=== PATIENT | male | born 1980 | race African-American/Black ===

== ENCOUNTER 2016-11-28 07:06 | Emergency (ER) | payer OTHER ==
--- NOTE | ~2016-11-28 | CR90 ---
[facility]. [facility] A Service of [facility] & [facility] RADIOLOGY TEXT RESULTS PATIENT: REY MUNOZ LOCATION: SED : 84 UNIT #: [id number] AGE: [address]: Shay Butler MD SEX: M ORDER DR: [id number] [place] [id number] MR#: [id number] Acc #: [id number] NAME: REY MUNOZ : 1980 SEX: M STUDY DATE/TIME: 11/28/2016 6:03 UNIT: SED ROOM: STUDY DESCRIPTION: CR Elbow 2 View Lt Attending Physician: Shay Butler M.D. Ordering Physician: Shay Butler M.D. Primary Care Physician: No Primary Care Physician MEDICAL IMAGING REPORT This report is preliminary unless electronic signature is present. EXAM Left elbow 2 views 11/28/2016 CLINICAL HISTORY Left elbow laceration from glass. There is concern about a possible foreign body. FINDINGS There is some artifact overlying the wound from bandages. This may limit sensitivity for more subtle foreign bodies. Allowing for that, no convincing evidence of foreign body is seen. On the AP view. There are faint radiodensities projected over the soft tissues though these may be artifact as well and they are not closely associated with the laceration rendering it unlikely that they represent foreign bodies related to the wound. Dictated by... Kristopher Fuentes M.D. THIS IS AN ELECTRONICALLY VERIFIED REPORT Kristopher Fuentes M.D. at 11/28/2016 3:49 PM TEV/aa TD: 11/28/2016 08:11 JOB #: [id number] MEDICAL IMAGING REPORT Page 1 of 1
[~2016-11-28 07:06] MED LIST: AMOXICILLIN; ATARAX PO; BACLOFEN10 MG PO; FLAGYL PO; FLEXERIL; FLEXERIL10 M1 PO; HYDROCODON-ACE1 EAC9; NAPROXEN PO; NO MEDICATIONS; ULTRAM PO; VOLTAREN75 MG PO
== END 2016-11-28 07:09 | disposition home or self-care (01) ==
LOC: SED 07:06
DX: S51.012A Laceration without foreign body of left elbow, initial encounter (principal); F17.200 Nicotine dependence, unspecified, uncomplicated; W26.9XXA Contact with unspecified sharp object(s), initial encounter; Y92.009 Unspecified place in unspecified non-institutional (private) residence as the place of occurrence of the external cause
CPT/HCPCS: 12032; 73070; 99283